=== PATIENT | male | born 1960 | race Caucasian/White ===

== ENCOUNTER 2022-09-20 16:45 | Observation (INO) | payer MEDICARE, MEDICAID ==
[2022-09-20] VITALS (8 sets, daily range): BP systolic 113–144; BP diastolic 90–100
[~2022-09-20] VITALS: Ht 167.6 cm; Wt 103.7 kg
[2022-09-20] MEDS ORDERED: LASIX20 MG PO (18:32)
[2022-09-20] MEDS ORDERED: COZAAR25 MG PO (18:32)
[2022-09-20] MEDS ORDERED: METFORMIN HCL500 MG PO (18:33)
[2022-09-20] MEDS ORDERED: OMEPRAZOLE20 M1 PO (18:34)
[2022-09-20] MEDS ORDERED: ALLOPURINOL100 MG PO (18:34)
[2022-09-20] MEDS ORDERED: TERAZOSIN HCL5 MG PO (18:36)
--- NOTE | 2022-09-20 19:10 | NUR ---
PT ARRIVED TO CCU [id number] AT THIS TIME FROM ED, HE IS ALERT AND ORIETNED, PT TRANSFERED SELF FROM STRETCHER TO HOSP BED, REPORT FROM MARYELLEN Hough RN AT THIS TIME, NO SKIN ISSUES NOTED.
--- OUTSIDE RECORDS SUMMARY | 2022-09-20 19:12 | XMS ---
PreManage Notification: DARIEL CASTRO Security Medical Care Administrator Events No recent Security Events currently on file CRITERIA MET - [facility] - 2 Visits in [address] [facility] PHONE: [phone] VENITA BRAR Counselor: Mental Health Current PHONE: [phone] MARYAM PENA Nurse Practitioner: Family Current PHONE: [phone] [facility]: Diagnostic Radiology Current ASSOCIATES PHONE: [phone] JT DICKSON Radiology: Diagnostic Radiology Current PHONE: Unknown TAY MORALES Student in an Organized Health Care Current Education/Training Program PHONE: [phone] RUFUS ANAYA Nurse Practitioner: Family Current PHONE: Unknown CHELLY NORIEGA Counselor: Mental Health Current PHONE: [phone] Fritz has no Care Guidelines for this patient. E.D. VISIT COUNT ([address] MO[address] [facility]. 1 [facility] TOTAL 2 NOTE: Visits indicate total known visits. ED/UCC VISIT TRACKING (12 MO.) 09/20/2022 16:46 [facility] [place] TYPE: Emergency COMPLAINT: - RECTAL BLEEDING 09/01/2022 18:21 [facility]. TYPE: Emergency DIAGNOSES: - Sprain of joints and ligaments of unspecified parts of neck, initial encounter - Unspecified injury of head, initial encounter - Neck Injury INPATIENT VISIT TRACKING (12 MO.) No inpatient visits to display in this time frame [email or web address]
--- NOTE | 2022-09-20 21:58 | NUR ---
PT HALF COMPLETE WITH BOWEL PREP JUST COMPLETED FIRST BOWEL MOVEMENT, FORMED NOTED TO BE DARK BLACK WITH STREAKS OF RED. NOWINTO ROOM TO SEE PT. ADVICED THAT PT IS BACK ON BSC AT THIS TIME.
--- NOTE | 2022-09-20 22:41 | NUR ---
PT UP FREQUENTLY TO BEDSIDE COMMODE, INDEPENDENT, CALLS WHEN FINISHED. HE HAS COMPLETED BOWEL PREP.
--- NOTE | 2022-09-20 23:40 | NUR ---
PT RESTING QUIETLY IN BED, ALERT TO RN AT BEDSIDE. NO NEW CONCERNS OR REQUESTS
--- NOTE | 2022-09-20 23:56 | NUR ---
PT UP TO BEDSIDE COMMODE, HAD MEDIUM CLEAR BROWN STOOL LIQUID. PT TOLERATING ACTIVITY WELL, INDEPENDENT, HE CALLS WHEN COMPLETE, HE REPORTED NO COMPLAINTS OF PAIN, ASSESSMENT COMPLETE NO NEW CONCERNS
[2022-09-21] VITALS: BP 112/74
--- NOTE | 2022-09-21 02:06 | NUR ---
PT UP TO BEDSIDE COMMODE HAD MED PACE LIQUID STOOL, HE ALSO VOIDED IN COMMODE. HE HAS NO REQUESTS OR CONCERNS AT THIS TIME.
--- NOTE | 2022-09-21 04:45 | NUR ---
INTO PT ROOM TO CLEAN COMMODE AFTER USE, PT BACK TO BED, AFTER 3 ATTEMPTS BY TWO RN'S PT HAS NEW IV SITE IN RIGHT HAND, HE HAS RESTRICTED EXTREMITY BAND ON RIGHT HE DOES NOT WANT B/P TAKEN ON THAT ARM DUE TO RIGHT SHOULDER PAIN, PT WAS NOTED TO BE DIFFICULT IV START BY ED NURSE ON REPORT. HE ALSO HAS FEAR OF NEEDLES. LABS DRAWN FROM NEW IV SITE AT RIGHT HAND. PT HAS NO OTHER CONCERNS OR REQUESTS AT THIS TIME.
[2022-09-21 05:22] VITALS: BP 129/87
--- NOTE | 2022-09-21 06:37 | NUR ---
PT REQUESTED PAIN MEDICATION FOR RIGHT SHOULDER PAIN/NECK 12/05, TYLENOL 650MG PO PRN ADMINISTERED WITH SIP OF WATER PER 'S ORDER.
--- NOTE | 2022-09-21 07:50 | NUR ---
RECEIEVED REPORT FROM [facility] NURSE. PT APPEARS TO BE SLEEPING COMFORTABLY. RESPIRATIONS EVEN AND REGULAR.
[2022-09-21 08:39] VITALS: BP 129/83
--- NOTE | 2022-09-21 08:40 | NUR ---
PT ASSESSMENT AND MEDICATION ADMINISTRATION COMPLETED. PT IS A/O, RESPIRATIONS EVEN AND REGULAR. MD AT BEDSIDE. CALL LIGHT WITHIN REACH.
--- NOTE | 2022-09-21 09:55 | NUR ---
PT OFF FLOOR TRANSFERRED TO SURGERY.
--- NOTE | 2022-09-21 10:37 | NUR ---
DR. ALVAREZ STATES TO ND' CBC ORDER THAT WAS PLACED FOR NOW STATING IT WAS ENTERED IN ERROR, ORDER LUDIVINA'D. LAB NOTIFIED.
[2022-09-21 10:40] VITALS: BP 115/81
--- NOTE | 2022-09-21 10:40 | NUR ---
PT ARRIVED FROM PACU. BY STRETCHER. TRANSFERED TO BED WITH 3 PERSON ASSIST. REPORT RECEIVED FROM LADY SANFORD. PT AWAKENING SLOWLY. VITAL SIGNS STABLE. PT PASSING GAS AND DENIES PAIN AND NAUSEA. PT REQUESTS FOOD AND FLUID. CALLS HIS GIRLFRIEND AND ASKS FOR "A DOUBLE QUARTER POUNDER WITH CHEESE AND A MILKSHAKE." PT ADVISED THAT HE WILL NEED TO WAIT FOR MD SIMS BEFORE EATTING FOOD. PT UP TO BEDSIDE COMODE WITH STAND BY ASSIST. PT HAS ADDITIONAL BOWEL MOVEMENT AND PASSES LARGE AMOUNTS OF GAS. EMMA CARE PER PT. STAND BY ASSIST BACK TO BED. ABDOMEN SOFT AND NON TENDER. REPORT GIVEN TO PTS PRIMARY RN, GENIA. NO ADDITONAL NEEDS AT THIS TIME. BED RAILS UP. CALL LIGHT WITHIN REACH.
[2022-09-21] MEDS ORDERED: PANTOPRAZOLE SO40 MG PO (11:02)
[2022-09-21 11:04] VITALS: BP 112/68
--- NOTE | 2022-09-21 11:23 | NUR ---
PT IS A/O, RESPIRATIONS EVEN AND REGULAR. VS WNL. AWAITING RIDE FOR DC. CALL LIGHT WITHIN REACH.
[2022-09-21 12:14] VITALS: BP 136/85
--- NOTE | 2022-09-23 13:05 | CONS ---
[facility] [address], [place] [address] Signed DATE OF CONSULTATION: 09/20/2022 CONSULTING PHYSICIAN: Medina Alvarez MD. REQUESTING PHYSICIAN: Dr. Coleman. PROBLEM: Hematochezia. HISTORY OF PRESENT ILLNESS: This 62-year-old white man lives in the [facility]. While house sitting his brother's home in [place] several weeks ago, he "cranked his neck," which required use of Aleve for relief of the pain. He has since returned to the [facility] where he lives and happened to be traveling through [place] today. He was driving and felt wetness in his pants and realized that he had lost blood per rectum. He presented to his sister's home in [place] where bright red blood per rectum was noted. He did not have loss of consciousness or lightheadedness particularly. His primary care provider is in [place], [place] at [facility]. The patient was noted in the emergency room to be tachycardic and without anemia, hemoglobin 16.9. He tells me he has had no hematemesis at all. He denies any dysphagia. He has not had rectal bleeding or hematemesis in the past. PAST MEDICAL HISTORY: Notable for Zithromax allergy. The patient does drink alcohol on a routine basis, but does use THC edibles for pain. He does not smoke. SOCIAL HISTORY: Is notable that he lives in the [facility]. He is disabled, previously working as a pharmacy delivery driver. REVIEW OF SYSTEMS: He denies any dysphagia or hematemesis. He has had blood per rectum with his bowel prep and previously of course. Denies any abdominal pain. PHYSICAL EXAMINATION: GENERAL: He is an obese white man, who looks to be in no distress. He is currently Electronically Signed By: MEDINA ALVAREZ MD 09/23/22 1305 PATIENT NAME: DARIEL CASTRO CONSULTATION DATE OF : 60 REPORT #: [id number] PHYSICIAN: MEDINA ALVAREZ MD PCP: NO PRIMARY CARE PHYSICIAN REPORT IS CONFIDENTIAL AND NOT TO BE RELEASED WITHOUT AUTHORIZATION [facility] [address] [facility] [place] [address] Signed contending with his bowel prep and is on the commode. He has a full berg. VITAL SIGNS: Height is 5 feet 6 inches. Weight is 103.7 kg with BMI therefore 36.9. NECK: Trachea is midline. CHEST: Shows normal respiratory excursion. Pulses regular. ABDOMEN: Somewhat obese. EXTREMITIES: Show no clubbing, cyanosis, or edema. CURRENT MEDICINES: Include pantoprazole, melatonin, carvedilol, MiraLAX prep, Zofran, and an insulin regimen for the underlying diabetes mellitus. He has Tylenol available for pain. ASSESSMENT: The patient has hematochezia. He still may have an upper gastrointestinal source of bleeding despite having no hematemesis. I would recommend upper endoscopy concurrently perform with colonoscopy to better characterize the problem. The risk of bleeding, infection, and perforation were reviewed with him. He understands and wished to proceed. Medina Alvarez MD JM/MODL /[id number] cc: Dr. Coleman Copies: ~ Electronically Signed By: MEDINA ALVAREZ MD 09/23/22 1305 PATIENT NAME: MATTHEWDARIEL ANA CRISTINA CONSULTATION DATE OF : 60 REPORT #: [id number] PHYSICIAN: MEDINA ALVAREZ MD PCP: NO PRIMARY CARE PHYSICIAN REPORT IS CONFIDENTIAL AND NOT TO BE RELEASED WITHOUT AUTHORIZATION
--- NOTE | 2022-09-23 13:05 | OR ---
[facility] [address] [place], [place] [address] Signed DATE OF OPERATION: 09/21/2022 SURGEON: Medina Alvarez MD PREOPERATIVE DIAGNOSIS: Hematochezia. POSTOPERATIVE DIAGNOSES: 1. Normal upper endoscopy except for mild duodenitis. 2. Extensive diverticulosis of sigmoid and left colon. 3. Adenomatous polyps x3 (cecum, right colon, sigmoid). PROCEDURES: 1. Esophagogastroduodenoscopy with biopsy. 2. Total colonoscopy to cecum with cold morcellation polypectomy x3. ANESTHESIA: Intravenous sedation, propofol infusion, Gloria Du CRNA. INDICATIONS: This 62-year-old white man presented with hematochezia yesterday. He is from the [facility]. He has recently been in [place] [facility] for his brother. He was passing through [place] when he was noted to have blood per rectum. He was not particularly hypotensive nor was his hematocrit particularly low, but he was admitted by the hospitalist, Dr. Coleman and monitored closely. He did not require transfusion. He has undergone a bowel prep. The patient has been taking a fair amount of meloxicam for arthritic changes in recent times. He has never had colonoscopy. He is admitted to undergo upper endoscopy and colonoscopy to assess the source of his bleeding. The risk of bleeding, infection, and perforation related upper endoscopy and colonoscopy were reviewed with him. He understands and wished to proceed. FINDINGS: Upper endoscopy was essentially normal. A good flap valve was noted. Vocal cords were normal as was the stomach, esophagus, and most of the duodenum. There was mild bulbar duodenitis but no sign of erosion or any lesion to account for blood per rectum. On colonoscopy, the prep was good. There were extensive changes of diverticulosis of the sigmoid and left colon. He had three adenomatous polyps, all of them about 6 mm in size, excised completely with cold morcellation technique including the cecum, right colon and sigmoid. Electronically Signed By: MEDINA ALVAREZ MD 09/23/22 1305 PATIENT NAME: DARIEL CASTRO OPERATIVE REPORT DATE OF : 60 REPORT #: [id number] PHYSICIAN: MEDINA ALVAREZ MD PCP: NO PRIMARY CARE PHYSICIAN REPORT IS CONFIDENTIAL AND NOT TO BE RELEASED WITHOUT AUTHORIZATION [facility] [address], [place] [address] Signed PROCEDURE IN DETAIL: The patient was brought to the endoscopy suite and placed in lateral decubitus position. He was given intravenous sedation to the point of slurred speech and nystagmus. A bite block was placed, though the patient was edentulous. An Olympus video upper endoscope was passed in the hypopharynx. The vocal cords were visualized as normal. Scope was advanced to the esophagus throughout its length, it was normal. The scope was passed in the stomach which was insufflated with air. Rugal folds were normal. There was no sign of blood clot or other abnormality. The pylorus was normal. Scope was passed through into the duodenum. The 3rd and 2nd portions were entirely normal. The bulbar portion had mild inflammation. A biopsy was obtained. Scope was withdrawn and biopsies taken of the antrum for both STAN and pathologic testing. Withdrawal of scope and retroflexed view showed a normal flap valve. The scope was straightened, withdrawn. The distal esophageal mucosa was normal though was biopsied nevertheless. Plans were then made for colonoscopy. Digital rectal examination was normal. There was no sign of blood and no neoplasm. An Olympus video colonoscope was passed in the rectum and manipulated throughout the colon noting numerous diverticula of the sigmoid and left colon. Scope was ultimately advanced to the cecum. Irrigation was undertaken. The ileocecal valve was well visualized. A flat adenomatous appearing polyp was noted of the cecum, which was excised with cold morcellation technique. It was about 6 mm. The scope was then withdrawn and the small similar such polyp was noted in the right colon similarly excised. Further withdrawal showed no other abnormality until diverticulosis of the left colon. In the mid sigmoid was a very tiny probably adenomatous polyp affirmed by narrowband imaging. It was excised with cold morcellation technique as well. Further withdrawal showed no other abnormality. Retroflexed view of the rectum was normal. Scope was removed. The patient was taken to recovery room in good condition. CONCLUDING DIAGNOSES: 1. Normal upper endoscopy, mild duodenitis. 2. Diverticulosis--most likely accounting for his recent hematochezia. 3. Incidentally identified and excised polyps x3. PLAN: He can be advanced in his diet and probably discharged from the evidence we have at this time per Dr. Coleman's recommendation. We recommend repeat colonoscopy in three years based on the adenomatous polyps. Electronically Signed By: MEDINA ALVAREZ MD 09/23/22 5035 PATIENT NAME: DARIEL CASTRO OPERATIVE REPORT DATE OF : 60 REPORT #: [id number] PHYSICIAN: MEDINA ALVAREZ MD PCP: NO PRIMARY CARE PHYSICIAN REPORT IS CONFIDENTIAL AND NOT TO BE RELEASED WITHOUT AUTHORIZATION [address] [address] Signed MD ROSA Klein/MODL /[id number] cc: Marnie Coleman MD [facility] [place], [place] Copies: MARNIE COLEMAN MD ~ Electronically Signed By: MEDINA ALVAREZ MD 09/23/22 1305 PATIENT NAME: DARIEL CASTRO OPERATIVE REPORT DATE OF : 60 REPORT #: [id number] PHYSICIAN: MEDINA ALVAREZ MD PCP: NO PRIMARY CARE PHYSICIAN REPORT IS CONFIDENTIAL AND NOT TO BE RELEASED WITHOUT AUTHORIZATION
--- NOTE | 2022-09-26 15:09 | PATH ---
[facility] [address] [facility] [place], [place] [address] Signed SPECIMEN(S): A ANTRUM/PYLORUS BIOPSY SPECIMEN(S): B DUODENAL BIOPSY SPECIMEN(S): C LOWER ESOPHAGEAL BIOPSY SPECIMEN(S): D CECUM POLYP SPECIMEN(S): E ASCENDING/RIGHT COLON POLYP SPECIMEN(S): F SIGMOID POLYP SPECIMEN SOURCE: A. ANTRUM/PYLORUS BIOPSY B. DUODENAL BIOPSY C. LOWER ESOPHAGEAL BIOPSY D. CECUM POLYP E. ASCENDING/RIGHT COLON POLYP F. SIGMOID POLYP CLINICAL HISTORY: Acute GI bleed. Postop: Mild duodenitis, extensive diverticulosis FINAL PATHOLOGIC DIAGNOSIS: A. Stomach, antrum/pylorus, biopsy: - No significant histopathologic alterations. B. Duodenum, biopsy: - No significant histopathology. C. Lower esophagus, biopsy: - Reflux esophagitis. - No evidence of Mccarthy's esophagus. D. Colon, cecum, polypectomy: - Multiple fragments of tubular adenoma. - One fragment of colonic epithelium demonstrates a benign intramucosal lymphoid nodule. - There is no evidence of high-grade dysplasia or malignancy. E. Colon, ascending/right, polypectomy: - Multiple fragments of tubular adenoma. - Two additional fragments of colon epithelium are within normal limits. - There is no evidence of high-grade dysplasia or malignancy. F. Colon, sigmoid, polypectomy: - No significant histopathology. - There is no evidence of neoplasia. COMMENT: Regarding specimen A, the sections through the gastric biopsies show fragments PATIENT NAME: DARIEL CASTRO PATHOLOGY DATE OF : 60 REPORT #: [id number] PHYSICIAN: DELORES MONTOYA PCP: NO PRIMARY CARE PHYSICIAN REPORT IS CONFIDENTIAL AND NOT TO BE RELEASED WITHOUT AUTHORIZATION [facility] [address] [place], [place] [address] Signed of histologically unremarkable antral and oxyntic mucosa. There is no evidence of acute or chronic inflammation. There is no evidence of H. pylori, intestinal metaplasia, abnormal infiltrates or neoplasia. Regarding specimen B, the sections from the duodenal biopsy show portions of duodenal mucosa with long finger-like villi. There is no villous atrophy, crypt hyperplasia or intraepithelial lymphocytosis, making a diagnosis of celiac disease unlikely. There is no evidence of peptic duodenitis, microorganisms, abnormal infiltrates or neoplasia. Regarding specimen C, the sections through the biopsy show strips of reactive appearing squamous mucosa with basal cell hyperplasia. The epithelium is infiltrated by lymphocytes and small numbers of eosinophils. No glandular mucosa or intestinal metaplasia is identified. Regarding specimen F, the sections from the specimen are architecturally normal without crypt distortion. There is no acute or chronic inflammation. There are no abnormal infiltrates. There is no evidence of inflammatory, hyperplastic or adenomatous polyps. TWK:[facility]:C2NR MICROSCOPIC EXAMINATION: Histologic sections of all submitted blocks are examined by light microscopy. These findings, together with the gross examination, support the pathologic diagnosis. GROSS DESCRIPTION: A. The specimen, labeled and designated "Castro, antrum/pylorus biopsy," is received in formalin and consists of two raya soft tissue fragments, ranging from 0.2 to 0.3 cm. Entirely submitted in (A1). B. The specimen, labeled and designated "Castro, duodenal biopsy," is received in formalin and consists of two raya soft tissue fragments, ranging from 0.3 to 0.4 cm. Entirely submitted in (B1). C. The specimen, labeled and designated "Castro, lower esophageal biopsy," is received in formalin and consists of three raya soft tissue fragments, ranging from 0.1 to 0.4 cm. Entirely submitted in (C1). D. The specimen, labeled and designated "Matthew, cecum polyp," is received in formalin and consists of three raya soft tissue fragments, ranging from 0.2 to 0.4 cm. Entirely submitted in (D1). E. The specimen, labeled and designated "Matthew, ascending/right colon polyp," PATIENT NAME: DARIEL CASTRO PATHOLOGY DATE OF : 60 REPORT #: [id number] PHYSICIAN: DELORES PATHOLOGY PCP: NO PRIMARY CARE PHYSICIAN REPORT IS CONFIDENTIAL AND NOT TO BE RELEASED WITHOUT AUTHORIZATION [facility] [address] [place], [place] [address] Signed is received in formalin and consists of four raya soft tissue fragments, ranging from 0.1 to 0.3 cm. Entirely submitted in (E1). F. The specimen, labeled and designated "Matthew, sigmoid polyp," is received in formalin and consists of five raya soft tissue fragments, ranging from 0.1 to 0.2 cm. Entirely submitted in (F1). VB (under the direct supervision of a pathologist) The Gross Description was prepared using a voice recognition system. The report was reviewed for accuracy; however, sound-alike word errors, addition and/or deletions may occur. If there is any question about this report, please contact Client Services. PERFORMING LABORATORY: The technical component was performed by [facility], [address] [place] [id number] (CLIA# [id number]). Professional interpretation was performed by [facility], [facility], [address] [place] [id number] (CLIA#: [id number]) Diagnostician: Efrain Castillo MD Pathologist Electronically Signed 09/26/2022 Copies: ~ PATIENT NAME: MATTHEWDARIEL ANA CRISTINA PATHOLOGY DATE OF : 60 REPORT #: [id number] PHYSICIAN: DELORES PATHOLOGY PCP: NO PRIMARY CARE PHYSICIAN REPORT IS CONFIDENTIAL AND NOT TO BE RELEASED WITHOUT AUTHORIZATION
== END 2022-09-21 12:20 | disposition home or self-care (01) ==
LOC: ED 16:45 → CCU 19:26
PROVIDERS: Surgery; ADMIT Internal Medicine; ATTEND Internal Medicine
PROC: 0DBK8ZZ Excision of Ascending Colon, Via Natural or Artificial Opening Endoscopic (ICD-10-PCS; 2022-09-21)
PROC: 0DBN8ZZ Excision of Sigmoid Colon, Via Natural or Artificial Opening Endoscopic (ICD-10-PCS; 2022-09-21)
PROC: 0DBH8ZZ Excision of Cecum, Via Natural or Artificial Opening Endoscopic (ICD-10-PCS; 2022-09-21)
PROC: 0DB98ZX Excision of Duodenum, Via Natural or Artificial Opening Endoscopic, Diagnostic (ICD-10-PCS; principal; 2022-09-21 10:00)
PROC: 0DB68ZX Excision of Stomach, Via Natural or Artificial Opening Endoscopic, Diagnostic (ICD-10-PCS; 2022-09-21 10:00)
DX: K57.31 Diverticulosis of large intestine without perforation or abscess with bleeding (principal); K29.80 Duodenitis without bleeding; E11.9 Type 2 diabetes mellitus without complications; I50.9 Heart failure, unspecified; I11.0 Hypertensive heart disease with heart failure; D12.2 Benign neoplasm of ascending colon; K63.5 Polyp of colon; K21.00 Gastro-esophageal reflux disease with esophagitis, without bleeding
CPT/HCPCS: 00731; 36415; 80048; 80053; 83735; 85025; 85610; 85730; 86850; 86900; 86901; 96374; 96376; 99285; A9270; C9113; G0378; J2704; J7121